=== PATIENT | female | born 1955 | race Caucasian/White ===

== ENCOUNTER → 2016-07-15 | Outpatient (CLI) | payer OTHER ==
[~2016-07-15] MED LIST: ASPIRIN EC81 MG PO; FISH OIL 1,0001 EACH PO; FLONASE 50 MCG/16 GM NOSE; LOPRESSOR25 MG PO
--- NOTE | ~2016-07-15 | ESTC ---
Cardiac Perfusion Imaging Demographics Patient Name SURYA Carias Gender Female Patient Number [id number] Race Visit Number [id number] Ethnicity [employer] ID Room Number Accession Number [id number] Height Date of 1955 Weight Age 61 year(s) BSA Referring Physician Alvaro HUTCHINS MD Interpreting Alvaro Alvarez Date of study 07/15/2016 Physician Supervising MD/MLP Alvaro Alvarez NM Technologist Bernardo Gibbs MD Ordering Physician Stress Aleah Dowd electromedical equipment technician RDCS Stress ECG Reading Alvaro Burk Physician Procedure Procedure Type: Nuclear Stress Test:Cardiolite Stress Test Procedure Start time: 07/15/2016 09:34 Indications: Chest tightness. Risk Factors The patient risk factors include:obesity, hypercholesterolemia and dyslipidemia. Conclusions Summary Perfusion Images: The overall quality of the study is poor, due to gastrointestinal tracer uptake. Left ventricular cavity is noted to be normal on the stress and normal on the rest images. There is no evidence of abnormal lung activity. The right ventricle is not visualized an cannot be assessed. Impression ECG portion of the exercise stress test is clinically positive for ischemia by diagnostic criteria. Bourgeois treadmill score is -2, however given early ST depressions in stage 1, this is finding on exercise portion of stress test for inducible ischemia. Pt reached 4.6 METS. [address] depressions in leads V4-6. Myocardial perfusion imaging is mildly abnormal. The images reveal a very small sized, very mild intensity, predominantly fixed defect in the apex/distal anterior wall. Overall left ventricular systolic function was normal. Calculated LVEF is 66% and TID ratio is 1.08. This is a intermediate risk stress test. There are no previous studies for comparison . Recommendation Given horizontal ST depressions in leads V4-6 in stage 1 of Maurice at 2:50 seconds and poor functional capacity (4.6 METS) - this is markedly abnormal for her age, re: proceeding with cardiac catheterization to ensure no significant obstructive CAD. Stress Protocols Resting ECG Normal sinus rhythm. Resting HR:66 bpm Resting BP:142/87 mmHg Pre-stress physical exam: s1 s2 rrr Peak HR:136 bpm HR/BP product:[id number] Peak BP:142/100 mmHg Predicted HR: 161 bpm % of predicted HR: 84 ECG Findings [address] depression in leads V4-6 Arrhythmias No rhythm abnormality. Symptoms REECE, palpitations, no chest pain or tightness Stress Interpretation The electrocardiographic portion of the stress test was positive for ischemia. Blood pressure response was normal, heart rate response was normal for exertion. The Bourgeois Treadmill Score was -2. This corresponds to a intermediate risk stress test. Imaging Results Summed scores - Summed stress score: 11 - Summed rest score: 12 - Summed difference score: -1 Stress ejection Ejection fraction:66 % EDV :116 ml ESV :39 ml Stroke volume :77 ml LV mass :145 gr Imaging Protocols Rest Stress Isotope:Tc99m Sestamibi IV Isotope: Tc99m Sestamibi IV Isotope dose:15.2 mCi Isotope dose:47 mCi Date:07/15/2016 07:44 Date:07/15/2016 09:48 Technique: SPECT Technique: Gated Supine SPECT Supine Scan Time:45-60 minutes post Scan Time:45-60 minutes post injection injection Medical History Admission Data Admission date: 07/15/2016 Admission Time: 06:46 Hospital Status: Outpatient. Signatures dtt: DALIA SHELLEY dtd: 07/15/16 0934 Physician Self Edit
[2016-07-15 07:53] LABS: ALBUMIN 3.9 gm/dL (3.5-5.0); ALK PHOS 98 IU/L (33-138); ALT 29 IU/L (12-78); ANION GAP 10.2 (10.0-19.0); AST 15 IU/L (10-40); BLOOD UREA NITROGEN 17 mg/dL (6-24); CHLORIDE 109 mMol/L (96-110); CO2 28 mMol/L (22-32); CREATININE 0.9 mg/dL (0.5-1.1); ESTIMATED GFR (MDRD EQUATION) > 60; POTASSIUM 4.2 mMol/L (3.7-5.1); SODIUM 143 mMol/L (135-145); TOTAL BILIRUBIN 0.9 mg/dL (0.0-1.5); TOTAL PROTEIN 7.6 g/dL (6.0-8.4)
== END | disposition disaster alternative care site (69) ==
LOC: GLAB 06:46 → GRAD 07:15
PROVIDERS: Internal Medicine Interventional Cardiology
DX: R07.9 Chest pain, unspecified (principal); I67.89 Other cerebrovascular disease; E78.00 Pure hypercholesterolemia, unspecified; E78.5 Hyperlipidemia, unspecified; E66.9 Obesity, unspecified
CPT/HCPCS: A9500

== ENCOUNTER 2016-07-22 07:52 | Outpatient (CLI) | payer OTHER ==
[~2016-07-22] VITALS: Ht 165.1 cm; Wt 108.6 kg
--- NOTE | ~2016-07-22 | CATH ---
Cardiac Diagnostic Report Demographics Patient Name SURYA Carias Gender Female Date of 1955 Age 61 year(s) Patient Number [id number] Date of Study 07/22/2016 Visit Number [id number] Room Number [id number] [place] [id number] Ht 165.1 cm Wt 108.6 kg Referring Radha Taylor Primary Physician Physician MERLINE Performing [place] Secondary Physician Physician Kim MIRELES Diagnostic [facility] Assisting Physician Physician Kim MIRELES Interventional Physician Blood Donor Recruiter Supervisor Physician Findings and Conclusions Diagnostic Findings and Conclusion Essentially normal epicardial coronaries. Elevated LVEDP (27 mmHg). Diagnostic Recommendations Patient will be discharged later today. I will plan on seeing the patient back in 4 week(s). Aggressive risk factor management. Aggressive medical therapy. Cardiac diet and exercise program discussed. Patient has been instructed to not lift anything more than 5 pounds for 1 week. Procedure Description The patient was brought to the diagnostic cardiac catheterization-EP laboratory in the fasting, non-sedated state. Informed consent was obtained in the written and verbal form after the risks and benefits were explained. The patient had no further questions and agreed to proceed. The planned puncture-incision site(s) were shaved and prepped with ChloraPrep and draped in the usual sterile manner. Conscious sedation, supplemental oxygen, and pain control medications were delivered by a registered nurse under physician guidance. Surface ECG rhythm, blood pressure measurement, and pulse oximetry were monitored throughout the procedure. Arterial access. The access site was infiltrated with lidocaine. The vessel was entered with the Seldinger technique. A sheath was advanced into the vessel and used for catheter placement. Selective left coronary angiography. A catheter was advanced into the left coronary vessel ostium under Fluoroscopic guidance. Contrast was injected by hand. Images were obtained in multiple projections. Selective right coronary angiography. A catheter was advanced into the right coronary vessel ostium under fluoroscopic guidance. Contrast was injected by hand. Images were obtained in multiple projections. Left heart catheterization. A catheter was advanced across the aortic valve to the left ventricle under fluoroscopic guidance. Resting hemodynamics were obtained. Arterial artery hemostasis was achieved. The patient was transferred to a regular nursing floor via cart accompanied by a nurse. The patient left the laboratory in stable condition. Diagnostic Cath Status: Elective Procedure Procedure Type Diagnostic procedure:Angiography:, Coronary Angios w/[facility] Indications: Abnormal Stress Test, Chest pressure and Shortness of breath. The procedure was explained in detail to the patient. Risks, complications and alternative treatments were reviewed. Written consent was obtained. Medications Reviewed with Patient prior to Procedure. Angiographic Findings Dominance: Right Cardiac Arteries and Lesion Findings LMCA: Normal (0% Stenosis). LAD: Normal (0% Stenosis). LCx: Normal (0% Stenosis). RCA: Normal (0% Stenosis). Procedure Data Procedure Date Date: 07/22/2016Start: 11:44 AMEnd: 12:16 PM Entry Locations - Retrograde Percutaneous access was performed through the Right Radial artery (Primary location). A 6 Fr sheath was inserted. Hemostasis was successfully obtained using Mechanical Compression. Closure Comments: 14 ml of air in R. Band by Emmanuel Barraza . Procedure Medications Order and Administration + + + +--------+ !Time !Medication !Dosage !Route ! + + + +--------+ !07/22/2016 11:42 AM !Fentanyl !50 mcg !I.V. ! + + + +--------+ !07/22/2016 11:43 AM !Versed !1 mg !I.V. ! + + + +--------+ !07/22/2016 11:49 AM !Versed !1 mg !I.V. ! + + + +--------+ !07/22/2016 11:57 AM !Fentanyl !25 mcg !I.V. ! + + + +--------+ !07/22/2016 12:00 PM !Fentanyl !25 mcg !I.V. ! + + + +--------+ 07/22/2016 11:57 AM !Heparin (ACC_3) !5000 units !I.V. ! + + + +--------+ Devices Used - A5 Fr. BS JR 4 Diag. Catheterwas used for:Right coronary angiography. - A5 Fr. BS JL 3.5 Diag. Catheterwas used for:Left coronary angiography. - A5 Fr. BS Angled Pigtail Diag. Catheterwas used for:LV Pressures. Contrast Material - Isovue 29020 ml Fluoroscopy Time: Diagnostic: 3:30 minutes. Total: 3:30 minutes. Fluoroscopy Dose: Diagnostic: 634 mGy. Total: 634 mGy. Estimated Blood Loss: 10 ml. Medical History Performed Procedures and Imaging Results - Stress testing with SPECT MPIwas performed. Results were: Positive. Allergies - Sulfa. - Penicillin. - Other:(erythromycin). Risk Factors The patient risk factors include:obesity, treated hypercholesterolemia, treated hypertension, last creatinine: 0.9 mg/dl, creatinine clearance: 115.39 ml/min and dyslipidemia. Admission Data Admission Date: 07/22/2016 Admission Time: 07:52 AM Admit Source: Other Insurance Payors: Private health insurance. Admission Medications + +------+------+ + + + + !Medication !Dosage!Times !Last !Last !Administered !Comments ! ! ! !Per !Delivery !Delivery ! ! ! ! ! !Day !Date !Time ! ! ! + +------+------+ + + + + !Aspirin ! ! ! ! ! ! ! !(any) ! ! ! ! ! ! ! + +------+------+ + + + + !Beta ! ! ! ! ! ! ! !Cj ! ! ! ! ! ! ! !(any) ! ! ! ! ! ! ! + +------+------+ + + + + Clinical Evaluation Leading to Procedure - The patient's CAD presentation was assessed as: Unstable angina. - The patient's anginal syndrome during the past two weeks was assessed as: Class II according to the [place] Cardiovascular Society Classification System (CCS). Anti-anginal medications were prescribed during the past two weeks. The medication is: Beta Blockers. - The patient has been in a state of heart failure within the past two weeks. - The patient's heart failure status was assessed as NYHA Class III, with CHF symptoms of REECE. Hemodynamics Condition: Rest O2 Consumption: Estimated: 202.40Heart Rate: 69 bpm Pressures (mmHg) +-----+ + !Site !Pressure ! +-----+ + !AO !153/90 (117) ! +-----+ + !LV !164/8 ,34 ! +-----+ + !LV !174/5 ,27 ! +-----+ + !LV !150/5 ,30 ! +-----+ + !AO !139/73 (102) ! +-----+ + !LV !143/5 ,30 ! +-----+ + Valve Gradients and Areas + +---------+---------+---------+ +---------+ + !Valve !Peak !Mean !Area !Index !Flow !Source ! + +---------+---------+---------+ +---------+ + !Aortic !0 !0 ! ! ! ! ! + +---------+---------+---------+ +---------+ + !Aortic !0 !0 ! ! ! ! ! + +---------+---------+---------+ +---------+ + Shunts Oxygen Values O2 Capacity 180.88 O2 Consumption 202.4 Discharge Data Discharge Date: 07/22/2016 Hospital Status: Outpatient Signatures dtt: KIM SHELLEY dtd: 07/22/16 1144 Physician Self Edit
[2016-07-22 08:23] LABS: BASOPHIL % 0.9 %; EOSINOPHIL # 0.3 K/uL (0.0-0.5); EOSINOPHIL % 5.5 %; HEMATOCRIT 40.8 % (33.0-46.0); HEMOGLOBIN 13.3 g/dL (10.0-15.0); IMMATURE GRANULOCYTE % 0.2 %; LYMPHOCYTE # 1.7 K/uL (0.8-4.0); LYMPHOCYTE % 37.5 %; MCH 29.8 pg (27.0-34.0); MCHC 32.6 gm/dL (32.0-36.5); MCV 91.5 fl (83.0-98.0); MONOCYTE # 0.3 K/uL (0.0-1.0); MONOCYTE % 5.8 %; MPV 9.9 fl (9.4-12.4); NEUTROPHIL # (ANC) 2.3 K/uL (1.8-7.8); NEUTROPHIL % 50.1 %; NRBC % 0 /100WBC (0-0.00); PLATELET COUNT 217 K/uL (150-450); RBC 4.46 M/uL (3.50-5.50); RDW-CV 12.8 % (11.9-14.6); WBC 4.5 K/uL (4.0-11.0)
[2016-07-22 08:32] LABS: INR - (THERAPEUTIC) 0.92 (0.92-1.07); PROTIME 9.7 SECONDS (9.8-11.4); PTT 27 SECONDS (25-32)
== END 2016-07-22 15:32 | disposition disaster alternative care site (69) ==
LOC: GPCU 07:52 → GCAT 07:52
PROVIDERS: Internal Medicine Interventional Cardiology
PROC: B2111ZZ Fluoroscopy of Multiple Coronary Arteries using Low Osmolar Contrast (ICD-10-PCS; principal; 2016-07-22)
PROC: 4A023N7 Measurement of Cardiac Sampling and Pressure, Left Heart, Percutaneous Approach (ICD-10-PCS; principal; 2016-07-22)
DX: I20.0 Unstable angina (principal); I10 Essential (primary) hypertension; E78.00 Pure hypercholesterolemia, unspecified; R94.39 Abnormal result of other cardiovascular function study; R06.02 Shortness of breath; Z79.82 Long term (current) use of aspirin; Z79.899 Other long term (current) drug therapy
CPT/HCPCS: J1644; J2250; J3010; J7030

== ENCOUNTER → 2016-08-21 | Outpatient (CLI) | payer OTHER ==
[2016-08-21 10:23] LABS: ANION GAP 14.1 (10.0-19.0); BLOOD UREA NITROGEN 18 mg/dL (6-24); CALCIUM 9.2 mg/dL (8.5-10.5); CHLORIDE 108 mMol/L (96-110); CO2 26 mMol/L (22-32); CREATININE 0.8 mg/dL (0.5-1.1); ESTIMATED GFR (MDRD EQUATION) > 60; POTASSIUM 4.1 mMol/L (3.7-5.1); SODIUM 144 mMol/L (135-145)
== END | disposition disaster alternative care site (69) ==
LOC: LNHI 10:10
PROVIDERS: Internal Medicine Interventional Cardiology
DX: I20.8 Other forms of angina pectoris (principal); I10 Essential (primary) hypertension; E78.5 Hyperlipidemia, unspecified